=== PATIENT | male | born 1990 | race Caucasian/White ===

== ENCOUNTER 2024-03-23 07:53 | Outpatient (CLI) | payer OTHER, SELFPAY | END 2024-03-23 07:54 | disposition home or self-care (01) | LOC: NFLDREF 03-24 08:41 | PROVIDERS: PCP Family Medicine; Referring Provider Family Medicine; Visit Provider Family Medicine | DX: Z13.1 Encounter for screening for diabetes mellitus (principal); Z13.6 Encounter for screening for cardiovascular disorders | CPT/HCPCS: 80061; 82947 ==